=== PATIENT | female | born 1955 | race Caucasian/White ===

== ENCOUNTER 2021-12-25 18:08 | Emergency (ER) | payer BC, MEDICARE ==
[2021-12-25 19:10] LABS: TROPONIN I HIGH SENSITIVITY 6.7 pg/mL (<=60.3)
== END 2021-12-25 19:43 | disposition home or self-care (01) ==
LOC: JP.ED 18:08
DX: R07.89 Other chest pain (principal); E78.00 Pure hypercholesterolemia, unspecified; Z79.899 Other long term (current) drug therapy
CPT/HCPCS: 36415; 71046; 80048; 84484; 85025; 93005; 99285